=== PATIENT | male | born 1935 | race Hispanic/Latino ===

== ENCOUNTER 2017-05-25 08:27 | Outpatient (CLI) | payer MEDICARE ==
--- NOTE | 2017-05-25 09:46 | XRay Report ---
Right shoulder 3 views: History: Shoulder pain. 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 Cortical irregularity at the greater tuberosity with decrease in acromiohumeral space. No soft tissue calcification no fracture. Impression: Arthritis a.c. joint and glenohumeral joint. Cortical irregularity greater tuberosity probably related to chronic impingement.
== END 2017-05-25 08:28 | disposition home or self-care (01) ==
LOC: SPVWC 08:27
PROVIDERS: ATTEND Orthopaedic Surgery Sports Medicine
DX: M25.511 Pain in right shoulder (principal)

== ENCOUNTER 2017-10-11 14:29 | Outpatient (CLI) | payer MEDICARE ==
--- NOTE | 2017-10-12 02:56 | XRay Report ---
FINAL REPORT PROCEDURE: XR KNEE 4+V RT TECHNIQUE: RIGHT knee radiographs, AP, lateral and sunrise views. CPT 19910 HISTORY: RIGHT KNEE PAIN COMPARISON: No prior studies are available for comparison. FINDINGS: Fracture (s) and/or Dislocation(s): Knee replacement hardware is intact.. Alignment: Normal . Joint space(s): Normal . Soft tissues: There is soft tissue swelling. There is no joint effusion.. Bone mineralization: Normal . Foreign bodies: None . IMPRESSION: There is no fracture or malalignment. There is knee replacement hardware which is intact. There is prepatellar soft tissue swelling. There is no joint effusion..
== END 2017-10-11 14:30 | disposition home or self-care (01) ==
LOC: SPVIMAG 14:29
PROVIDERS: ATTEND Orthopaedic Surgery Sports Medicine
DX: M25.561 Pain in right knee (principal); M79.89 Other specified soft tissue disorders; Z96.651 Presence of right artificial knee joint